=== PATIENT | male | born 1975 | race Caucasian/White ===

== ENCOUNTER 2020-06-28 08:38 | Emergency (ER) | payer BC ==
[~2020-06-28] VITALS: Ht 175.3 cm; Wt 84.1 kg
[2020-06-28] MEDS ORDERED: WELLBUTRIN XL300 M1 PO (08:48)
[2020-06-28] MEDS ORDERED: ROXICODONE 55 MG/TAB PO (13:25)
[2020-06-28] MEDS ORDERED: TYLENOL 325MG325 MG PO (13:25)
[2020-06-28 13:45] VITALS: BP 151/106; PULSE 97; TEMP 98
== END 2020-06-28 13:45 | disposition home or self-care (01) ==
LOC: COL.ER 08:38
DX: S52.571A Other intraarticular fracture of lower end of right radius, initial encounter for closed fracture (principal); S01.01XA Laceration without foreign body of scalp, initial encounter; V03.10XA Pedestrian on foot injured in collision with car, pick-up truck or van in traffic accident, initial encounter
CPT/HCPCS: J2270; J3010